=== PATIENT | female | born 1985 | race Two or more races ===

== ENCOUNTER 2023-07-05 08:52 | Outpatient (CLI) | payer OTHER | END 2023-07-05 08:55 | disposition home or self-care (01) | LOC: PRENATAL 08:52 | PROVIDERS: ATTEND Obstetrics & Gynecology Maternal & Fetal Medicine | DX: O36.80X0 Pregnancy with inconclusive fetal viability, not applicable or unspecified (principal); Z36.82 Encounter for antenatal screening for nuchal translucency; O09.529 Supervision of elderly multigravida, unspecified trimester; O99.280 Endocrine, nutritional and metabolic diseases complicating pregnancy, unspecified trimester; Z3A.11 11 weeks gestation of pregnancy ==

== ENCOUNTER → 2023-09-03 08:19 | Outpatient (CLI) | payer OTHER | END | disposition home or self-care (01) | LOC: PRENATAL 08:19 | PROVIDERS: ATTEND Obstetrics & Gynecology Maternal & Fetal Medicine | DX: O35.9XX0 Maternal care for (suspected) fetal abnormality and damage, unspecified, not applicable or unspecified (principal); O35.3XX0 Maternal care for (suspected) damage to fetus from viral disease in mother, not applicable or unspecified; O99.280 Endocrine, nutritional and metabolic diseases complicating pregnancy, unspecified trimester; O09.529 Supervision of elderly multigravida, unspecified trimester; Z3A.19 19 weeks gestation of pregnancy ==

== ENCOUNTER 2023-12-02 12:25 | Outpatient (CLI) | payer OTHER | END 2023-12-02 12:26 | disposition home or self-care (01) | LOC: PRENATAL 12:25 | PROVIDERS: ATTEND Obstetrics & Gynecology Maternal & Fetal Medicine | DX: O26.843 Uterine size-date discrepancy, third trimester (principal); O36.8130 Decreased fetal movements, third trimester, not applicable or unspecified; O09.523 Supervision of elderly multigravida, third trimester; O99.283 Endocrine, nutritional and metabolic diseases complicating pregnancy, third trimester; O24.419 Gestational diabetes mellitus in pregnancy, unspecified control; Z3A.32 32 weeks gestation of pregnancy ==

== ENCOUNTER 2024-01-01 15:33 | Outpatient (CLI) | payer OTHER ==
[2024-01-01] MEDS ORDERED: SYNTHROID137 MCG PO (18:52)
[2024-01-01] MEDS ORDERED: PRENATABS RX T1 EACH PO (18:52)
[2024-01-01] MEDS ORDERED: FE C TABLET1 EACH PO (18:53)
[2024-01-01] MEDS ORDERED: ADULT LOW DOSE81 M1 PO (18:53)
== END 2024-01-01 15:34 | disposition home or self-care (01) ==
LOC: PRENATAL 15:33
PROVIDERS: ATTEND Obstetrics & Gynecology Maternal & Fetal Medicine
DX: O26.843 Uterine size-date discrepancy, third trimester (principal); O36.8130 Decreased fetal movements, third trimester, not applicable or unspecified; O09.523 Supervision of elderly multigravida, third trimester; O99.283 Endocrine, nutritional and metabolic diseases complicating pregnancy, third trimester; O41.03X0 Oligohydramnios, third trimester, not applicable or unspecified; O24.419 Gestational diabetes mellitus in pregnancy, unspecified control; Z3A.36 36 weeks gestation of pregnancy

== ENCOUNTER 2024-01-01 17:45 | Inpatient (IN) | payer OTHER ==
[~2024-01-01] VITALS: Ht 160 cm; Wt 104.3 kg
[2024-01-01] MEDS ORDERED: RINGERS SOLUTION,LACTATED 1,000 ML IV SCH (18:15)
[2024-01-01] MEDS ORDERED: BETAMETHASONE ACETATE,SOD PHOS 30 MG/5 ML ML IM NR (18:15)
[2024-01-01 18:26] LABS: HEMATOCRIT 34.9 % (36.0-45.00); MEAN CELL VOLUME 90.5 fL (80.00-100.00); MEAN CORPUSCULAR HEMOGLOBIN 31.2 pg (27.00-32.0); MEAN CORPUSCULAR HGB CONC 34.5 g/dl (32.0-36.0); PLATELET COUNT 280 K/uL (150-450); RED BLOOD COUNT 3.85 M/uL (4.00-6.00); RED CELL DISTRIBUTION WIDTH 15.5 % (11.5-14.5)
[2024-01-01 18:47] LABS: PH,URINE 6.5 (5.0-8.0); URINE APPEARANCE Clear; URINE BILIRRUBIN Negative (NEGATIVE); URINE BLOOD Negative; URINE COLOR Yellow; URINE GLUCOSE Negative (NEGATIVE); URINE KETONE Negative (NEGATIVE); URINE LEUKOCYTE Small; URINE NITRATE Negative; URINE PROTEIN Negative (NEGATIVE); URINE UROBILINOGEN 0.2 E.U./dl
[2024-01-01] MEDS ORDERED: PRENATABS RX T1 EACH PO (18:52)
[2024-01-01] MEDS ORDERED: SYNTHROID137 MCG PO (18:52)
[2024-01-01 18:53] LABS: URINE BACTERIA 2656.9 uL (0.0-1933); URINE WBC 62.6 uL (0.0-23.2)
[2024-01-01] MEDS ORDERED: ADULT LOW DOSE81 M1 PO (18:53)
[2024-01-01] MEDS ORDERED: FE C TABLET1 EACH PO (18:53)
[2024-01-01 18:56] LABS: INR < 0.93; PARTIAL THROMBOPLASTIN TIME 25.4 SECONDS (22.0-34.0); PROTHROMBIN TIME 9.4 SECONDS (9.0-11.5)
[2024-01-01 19:01] LABS: ALBUMIN 2.7 gm/dL (3.4-5.0); BILIRUBIN TOTAL 0.16 mg/dL (0.3-1.2); CALCIUM 9.1 mg/dL (8.5-10.1); CREATININE SERUM 0.62 mg/dL (0.55-1.02); GFR 107.16; GLOBULINA 3.2 G/DL (2.4-3.5); POTASSIUM 4.44 mEq/L (3.5-5.1); TOTAL PROTEIN 5.9 gm/dL (6.4-8.2)
[2024-01-02] MEDS ORDERED: LEVOTHYROXINE SODIUM 137 MCG TABLET PO SCH (06:00)
[2024-01-02] MEDS ORDERED: OXYTOCIN 10 UNITS/ML VIAL ONE (09:04)
[2024-01-02] MEDS ORDERED: ERYTHROMYCIN BASE 1 GM TUBE OP ONE ×3 (09:04→12:45)
[2024-01-02] MEDS ORDERED: CEFAZOLIN SODIUM 1,000 MG VIAL ONE (11:12)
[2024-01-02] MEDS ORDERED: MEPERIDINE HCL/PF 50 MG/ML VIAL IM PRN (11:45)
[2024-01-02] MEDS ORDERED: PROMETHAZINE HCL 50 MG/ML AMPUL IM PRN (11:45)
[2024-01-02] MEDS ORDERED: CEFAZOLIN SODIUM 1,000 MG VIAL IV ONE (12:45)
[2024-01-02] MEDS ORDERED: OXYTOCIN 10 UNITS/ML VIAL IV ONE (12:45)
[2024-01-02 14:50] LABS: HEMATOCRIT 34.3 % (36.0-45.00); HEMOGLOBIN 11.7 g/dL (12.0-15.00); MEAN CELL VOLUME 90.1 fL (80.00-100.00); MEAN CORPUSCULAR HEMOGLOBIN 30.6 pg (27.00-32.0); PLATELET COUNT 272 K/uL (150-450); RED BLOOD COUNT 3.81 M/uL (4.00-6.00); RED CELL DISTRIBUTION WIDTH 15.9 % (11.5-14.5)
[2024-01-02] MEDS ORDERED: PROMETHAZINE HCL 50 MG/ML AMPUL IM ONE (15:01)
[2024-01-02 15:12] LABS: ABG PH 7.338 (7.35-7.45); ABG PO2 21.4 mmHg (80-100); ABG pCO2 43.3 mmHg (35-45); BASE EXCESS -3.7 mmol/l; BICARBONATE 22.7 mmol/l (23-25); SaO2 30.7 %; o2 21 %
[2024-01-03] MEDS ORDERED: OxyCODONE HCL/APAP UD (PERCOCET) PO PRN (08:00)
[2024-01-03] MEDS ORDERED: SIMETHICONE 125 MG CAPSULE PO SCH (09:00)
[2024-01-03] MEDS ORDERED: PNV,CALCIUM 72/IRON/FOLIC ACID 1 TAB TABLET PO SCH (09:00)
[2024-01-03] MEDS ORDERED: DOCUSATE SODIUM 100MG CAP PO SCH (09:00)
[2024-01-03] MEDS ORDERED: MAGNESIUM HYDROXIDE 30 ML BLIST.PACK PO NR (19:30)
[2024-01-03] MEDS ORDERED: MINERAL OIL 30 ML BLIST.PACK PO NR (19:30)
[2024-01-03] MEDS ORDERED: FAMOtidine 20 MG TABLET PO SCH (21:00)
[2024-01-04] MEDS ORDERED: IBUprofen 800 MG TABLET PO SCH (17:00)
== END 2024-01-05 14:28 | disposition home or self-care (01) | DRG 786 ==
LOC: OB/GYN 17:45 → LDR 17:45 → O/R 01-02 10:55 → OB/GYN 01-02 13:13
PROVIDERS: ADMIT Obstetrics & Gynecology; ATTEND Obstetrics & Gynecology
PROC: 4A1HXCZ Monitoring of Products of Conception, Cardiac Rate, External Approach (ICD-10-PCS; 2024-01-01)
PROC: 10D00Z1 Extraction of Products of Conception, Low, Open Approach (ICD-10-PCS; principal; 2024-01-02 10:15)
DX: O41.03X0 Oligohydramnios, third trimester, not applicable or unspecified (principal); O60.14X0 Preterm labor third trimester with preterm delivery third trimester, not applicable or unspecified; O24.420 Gestational diabetes mellitus in childbirth, diet controlled; O36.5930 Maternal care for other known or suspected poor fetal growth, third trimester, not applicable or unspecified; Z3A.36 36 weeks gestation of pregnancy; Z37.0 Single live birth; Z20.822 Contact with and (suspected) exposure to COVID-19